=== PATIENT | female | born 1990 | race Caucasian/White ===

== ENCOUNTER 2019-11-26 17:32 | Emergency (ER) | payer OTHER ==
--- NOTE | 2019-11-26 17:38 | PDOC ---
History of Present Illness - General Chief Complaint: Pain Stated Complaint: BACK PAIN TO ABD, Time Seen by Provider: 11/26/19 17:36 - History of Present Illness Initial Comments: 11/26/19 18:05 29 yo F no PMH presenting with R back pain. Reports that it began yesterday, , throbbing, continued into today, exacerbated by turning or bending. No recent trauma, no history of similar symptoms in the past. Did not try anything at home. No history of IV drug use, denies incontinence, no fevers/chills. Past History - Past Medical History Allergies/Adverse Reactions: Allergies Allergy/AdvReac Type Severity Reaction Status Date / Time No Known Allergies Allergy Verified 11/26/19 17:34 Home Medications: Ambulatory Orders Ibuprofen 600 mg PO QID PRN #30 tablet 11/26/19 Review of Systems - Review of Systems Comments:: 11/26/19 18:12 GENERAL/CONSTITUTIONAL: denies fever, chills, diaphoresis, generalized weakness , malaise, loss of appetite, weight change HEAD, EYES, EARS, NOSE AND THROAT: denies rhinorrhea, nasal congestion, throat pain, throat swelling, difficulty swallowing, mouth swelling, ear pain, eye pain , visual changes NEUROLOGIC: denies headache, focal weakness or paresthesias, dizziness, unsteady gait, seizure, mental status changes, bladder or bowel incontinence CARDIOVASCULAR: denies chest pain, syncope, palpitations, irregular heart rate, lightheadedness, peripheral edema RESPIRATORY: denies cough, shortness of breath, dyspnea with exertion, orthopnea , wheezing, stridor, hemoptysis GASTROINTESTINAL: denies abdominal pain, abdominal distension, nausea, vomiting , diarrhea, constipation, melena, hematochezia GENITOURINARY: denies dysuria, frequency, urgency, hesitancy, hematuria, flank pain, genital pain MUSCULOSKELETAL: endorses back pain. Denies myalgia, arthralgia, joint swelling , neck pain SKIN: denies rash, itching, pallor HEMATOLOGIC/IMMUNOLOGIC: denies easy bleeding, easy bruising, lymphadenopathy, frequent infections ENDOCRINE: denies unexplained weight gain, unexplained weight loss, heat intolerance, cold intolerance PSYCHIATRIC: denies anxiety, depression, suicidal or homicidal ideation, hallucinations *Physical Exam - Physical Exam 11/26/19 18:11 GENERAL: Awake, alert, and fully oriented, in no acute distress. HEAD: Normal with no signs of trauma. EYES: Pupils equal, round and reactive to light, extraocular movements intact, sclera anicteric, conjunctiva clear. No lid lag. EARS, NOSE, THROAT: Ears normal, nares patent, oropharynx clear without exudates. Dry mucous membranes. NECK: Normal range of motion, supple without lymphadenopathy or JVD LUNGS: Breath sounds equal, clear to auscultation bilaterally. No wheezes, and no crackles. No accessory muscle use. HEART: Regular rate and rhythm, normal S1 and S2 without murmur, rub or gallop. ABDOMEN: Soft, nontender, non-distended, normoactive bowel sounds, negative guarding, negative rebound MUSCULOSKELETAL: R low back pain with turning and bending, mild paraspinal tenderness to palpation. No bony deformities or tenderness. No CVA tenderness. UPPER EXTREMITIES: 2+ pulses, warm, well-perfused. No cyanosis. No clubbing. Cap refill <2 seconds. No peripheral edema. LOWER EXTREMITIES: 2+ pulses, warm, well-perfused. No calf tenderness. No peripheral edema. NEUROLOGICAL: Cranial nerves II-XII intact. Normal speech. Normal gait. PSYCHIATRIC: Cooperative. Good eye contact. Appropriate mood and affect. SKIN: Warm, dry, normal turgor, no rashes or lesions noted. Medical Decision Making - Medical Decision Making 11/26/19 18:13 Concern for back strain. Will apply lidocaine patch, check , give ibuprofen 600mg. Likely dc with ibuprofen to pharmacy, continue outpatient management. Discharge - Discharge Information Problems reviewed: Yes Clinical Impression/Diagnosis: Back pain Condition: Improved Disposition: HOME - Admission No - Additional Discharge Information Prescriptions: Ibuprofen 600 mg PO QID PRN #30 tablet PRN Reason: Pain - Follow up/Referral - Patient Discharge Instructions Patient Printed Discharge Instructions: DI for Back Strain or Sprain Additional Instructions: You were seen with low back pain. This is likely to be a muscle strain. Please take ibuprofen 600mg every 4-6 hours as needed for pain. Follow up with your primary care doctor within one week. Return to the ED if you develop worsening symptoms. - Post Discharge Activity
[2019-11-26 17:53] VITALS: BP 152/98; PULSE 78; TEMP 98.9; BMI 29.5
[2019-11-26] MEDS ORDERED: LIDOCAINE 5% TOPICAL PATCH TP ONE (18:01)
[2019-11-26] MEDS ORDERED: IBUPROFEN 600 MG TABLET (FP) PO ONE ×2 (18:04→18:18)
--- NOTE | 2019-11-26 18:07 | PDOC ---
Attending Attestation - Resident Resident Name: Adela Mayo - ED Attending Attestation I have performed the following: I have examined & evaluated the patient, The case was reviewed & discussed with the resident, I agree w/resident's findings & plan, Exceptions are as noted - HPI HPI: 11/26/19 18:06 21-year-old female no past medical history here today with 1 day of low back pain. Patient describes lower back pain worse with bending and turning denies any recent injury or fall no trauma no new weakness or numbness no bladder bowel incontinence no fever no chills denies any history of surgeries on her back previously no history of similar injuries in the past - Physicial Exam PE: 11/26/19 18:06 Awake alert no acute distress lungs are clear bilaterally heart is regular no murmurs rubs or gallops abdomen soft nontender back there is no midline spinal tenderness there is paraspinal muscle tenderness and spasm of the right lumbosacral region. Lower extremity exam reveals 5 out of 5 muscle strength the lower extremities on hip flexion extension, knee flexion extension, dorsiflexion plantarflexion. Sensation is intact grossly to the lower extremity - Medical Decision Making 11/26/19 18:07 21-year-old female with likely low back sprain normal neurological exam. Plan UA to rule out underlying UTI UCG likely treat with anti-inflammatories and topical medications discharged home told to follow-up warning signs given to seek repeat medical evaluation
[2019-11-26] MEDS ORDERED: LIDOCAINE 5% TOPICAL PATCH ONE (18:18)
[2019-11-26] MEDS ORDERED: LIDOCAINE PATCH REMOVAL MC SCH (22:00)
== END 2019-11-26 18:25 | disposition home or self-care (01) ==
LOC: FER 17:32
DX: M54.9 Dorsalgia, unspecified (principal)
CPT/HCPCS: 81003; 84703; 99283-25

== ENCOUNTER 2021-03-22 18:03 | Emergency (ER) | payer OTHER ==
[2021-03-22 18:15] VITALS: BP 151/100; PULSE 94; TEMP 99.4; BMI 26.2
== END 2021-03-22 18:40 | disposition home or self-care (01) ==
LOC: FER 18:03
DX: R51.9 Headache, unspecified (principal)
CPT/HCPCS: 99281-25

== ENCOUNTER 2021-09-30 09:36 | Emergency (ER) | payer OTHER ==
[2021-09-30 10:08] VITALS: BP 125/84; PULSE 82; TEMP 99.4; BMI 25.7
[2021-09-30] MEDS ORDERED: ACETAMINOPHEN 500 MG TABLET (FP) PO ONE (10:24)
[2021-09-30] MEDS ORDERED: ACETAMINOPHEN 325 MG TABLET (FP) ONE (10:43)
[2021-09-30 11:14] LABS: HCG,QUALITATIVE URINE Negative
[2021-09-30 11:22] LABS: ALBUMIN 3.9 g/dl (3.4-5.0); BILIRUBIN,TOTAL 0.7 mg/dl (0.2-1); CALCIUM 9.1 mg/dl (8.5-10); CREATININE 0.7 mg/dl (0.55-1.3); TOT PROT 7.2 g/dl (6.4-8.2)
[2021-09-30 11:51] LABS: BASO % 0.5 % (0-2.0); EOS % 0.1 % (0-4.5); HEMATOCRIT 35.7 % (32.4-45.2); HEMOGLOBIN 11.9 GM/dL (10.7-15.3); LYMPH % 24.1 % (8-40); MCH 26.9 pg (25.7-33.7); MCHC 33.4 g/dl (32.0-36.0); MEAN CELL VOLUME 80.5 fl (80-96); MEAN PLT VOLUME 8.5 fl (7.5-11.1); MONO % 6.8 % (3.8-10.2); NEUT % 68.5 % (42.8-82.8); PLATELET COUNT 312 10^3/uL (134-434); RBC 4.44 M/mm3 (3.60-5.2); RDW 13.7 % (11.6-15.6); WHITE BLOOD COUNT 7.3 K/mm3 (4.0-10.0)
== END 2021-09-30 13:13 | disposition home or self-care (01) ==
LOC: FER 09:36
DX: M25.512 Pain in left shoulder (principal); V89.9XXA Person injured in unspecified vehicle accident, initial encounter
CPT/HCPCS: 36415; 70450-TC; 73030-TC-LT-FY; 80053; 81003; 82550; 82553; 84484; 84703; 85025; 93005; 99285-25

== ENCOUNTER 2023-01-10 23:07 | Emergency (ER) | payer OTHER ==
[2023-01-10 23:14] VITALS: BP 128/92; PULSE 106; RESP 16; TEMP 100; BMI 27.3
== END 2023-01-10 23:33 | disposition home or self-care (01) ==
LOC: FER 23:07
PROC: 0H98XZZ Drainage of Buttock Skin, External Approach (ICD-10-PCS; principal; 2023-01-10)
DX: L02.31 Cutaneous abscess of buttock (principal)
CPT/HCPCS: 87070; 87076; 87186; 87205; 99283-25